=== PATIENT | female | born 1975 | race Caucasian/White ===

== ENCOUNTER → 2017-05-21 | Outpatient (CLI) | payer BC ==
[~2017-05-21] MED LIST: AMLODIPINE BESY10 MG PO; ENSKYCE1 EACH PO; FLEXERIL PO; HYDROCODONE-AP1 EAC6 PO; HYDROXYCHLOROQ200 M1 PO; LISINOPRIL10 MG PO; MEDROLDOSEPACK PO; PROPRANOLOL 1010 MG PO; TORADOL 10 MG T10 MG PO; ULTRAM 50MG TAB50 MG PO; VIAGRA25 MG PO; ZYRTEC-D TABLE1 EAC1 PO
== END ==
LOC: M.ULTRA 14:00
DX: I82.4Z1 Acute embolism and thrombosis of unspecified deep veins of right distal lower extremity (principal); I73.9 Peripheral vascular disease, unspecified

== ENCOUNTER 2017-09-02 10:11 | Emergency (ER) | payer BC ==
[~2017-09-02] VITALS: Ht 165.1 cm; Wt 58.2 kg
[~2017-09-02 10:11] MED LIST changes: -AMLODIPINE BESY10 MG PO; -ENSKYCE1 EACH PO; -HYDROXYCHLOROQ200 M1 PO; -TORADOL 10 MG T10 MG PO; -ULTRAM 50MG TAB50 MG PO; -VIAGRA25 MG PO; -ZYRTEC-D TABLE1 EAC1 PO
[2017-09-02] MEDS ORDERED: HYDROXYCHLOROQ200 M1 PO (10:19)
[2017-09-02] MEDS ORDERED: ENSKYCE1 EACH PO (10:19)
[2017-09-02] MEDS ORDERED: AMLODIPINE BESY10 MG PO (10:19)
[2017-09-02] MEDS ORDERED: VIAGRA25 MG PO (10:19)
[2017-09-02] MEDS ORDERED: ZYRTEC-D TABLE1 EAC1 PO (10:19)
[2017-09-02 11:06] LABS: ABSOLUTE BASOPHILS 0.1 thou/uL (0.0-0.2); ABSOLUTE EOSINOPHILS 0.2 thou/uL (0.0-0.7); ABSOLUTE LYMPHOCYTES 1.6 thou/uL (0.8-5.3); ABSOLUTE MONOCYTES 0.3 thou/uL (0.0-1.2); ABSOLUTE NEUTROPHILS 4.9 thou/uL (1.6-8.1); BASOPHILS 1.5 %; EOSINOPHILS 2.5 %; HEMATOCRIT 41.4 % (37.0-47.0); HEMOGLOBIN 13.7 gm/dL (12.0-15.0); LYMPHOCYTES 22.2 %; MCH 30.1 pg (26.0-34.0); MCHC 33.1 g/dL (28.0-37.0); MONOCYTES 4.9 %; MPV 8.3 fl. (7.2-11.1); NUCLEATED RBCS 0 /100WBC; PLATELET COUNT* 266 thou/uL (150-400); POLYS 68.9 %; RBC 4.55 mil/uL (4.20-5.00); RDW-CV 12.3 % (10.5-14.5); WBC 7.1 thou/uL (4.0-11.0)
[2017-09-02 11:10] LABS: ANION GAP 5 mmol/L (7-16); BUN 8 mg/dL (7-18); CALCIUM 8.5 mg/dL (8.5-10.1); CHLORIDE 105 mmol/L (98-107); CO2 27 mmol/L (21-32); CREATININE 0.7 mg/dL (0.6-1.3); GLUCOSE 85 mg/dL (70-99); POTASSIUM 3.8 mmol/L (3.5-5.1); SODIUM 137 mmol/L (136-145)
[2017-09-02 11:17] LABS: ALBUMIN 3.4 g/dL (3.4-5.0); ALKALINE PHOSPHATASE 61 U/L (46-116); LIPASE 69 U/L (73-393); SGOT 18 U/L (15-37); SGPT 16 U/L (30-65); TOTAL BILIRUBIN 0.4 mg/dL (<0.1-1.0); TOTAL PROTEIN 7.1 g/dL (6.4-8.2); TROPONIN-I LEVEL <0.06 ng/mL (<0.06)
[2017-09-02 11:18] LABS: APTT 29.4 Seconds (25.0-31.3); INR 1.1; PROTIME 10.7 Seconds (9.20-11.50)
[2017-09-02] MEDS ORDERED: ULTRAM 50MG TAB50 MG PO (11:33)
[2017-09-02] MEDS ORDERED: TORADOL 10 MG T10 MG PO (11:33)
[2017-09-02 11:48] VITALS: BP 111/70
--- NOTE | 2017-09-02 15:16 | EKG ---
[place] [address] ELECTROCARDIOGRAM REPORT Name: QUINTIN SANCHEZ Room: [facility]#: [id number] Admission: 09/02/17 Attend Phys: Discharge: Date of : 75 Report #: [id number] THIS REPORT FOR: //name// [facility] ED Test Date: 2017-09-02 Test Time: 10:15:46 Pat Name: QUINTIN SANCHEZ Department: Room: Gender: F Hat Sizer: AGUSTIN : 1975 Requested By: Chikis Holman Order Number: [id number] MD: Rajiv Jovel Measurements Intervals [place] Rate: 72 P: 53 MN: 143 QRS: 55 QRSD: 87 T: 28 QT: 361 QTc: 396 Interpretive Statements Sinus rhythm Compared to ECG 11/09/2010 20:34:24 Sinus arrhythmia no longer present Electronically Signed On 09-02-2017 15:16:46 CDT by Rajiv Jovel [email or web address] <ELECTRONICALLY SIGNED> By: Rajiv Jovel MD, [facility] 09/02/17 1516 [id number] Rajiv Jovel MD, FACC /EPI
== END 2017-09-02 11:50 | disposition home or self-care (01) ==
LOC: M.ERS 10:11
PROVIDERS: Personal Emergency Response Attendant
DX: R09.1 Pleurisy (principal); I10 Essential (primary) hypertension; Z88.0 Allergy status to penicillin

== ENCOUNTER → 2018-12-08 | Outpatient (CLI) | payer BC ==
[~2018-12-08] MED LIST changes: +AMLODIPINE BESY10 MG PO; +ENSKYCE1 EACH PO; +HYDROXYCHLOROQ200 M1 PO; +TORADOL 10 MG T10 MG PO; +ULTRAM 50MG TAB50 MG PO; +VIAGRA25 MG PO; +ZYRTEC-D TABLE1 EAC1 PO
== END ==
LOC: M.RAD 11:13
DX: J01.00 Acute maxillary sinusitis, unspecified (principal)